=== PATIENT | male | born 1965 | race African-American/Black ===

== ENCOUNTER 2016-04-07 11:49 | Outpatient (RCR) | payer MEDICARE, MEDICAID ==
--- OUTSIDE RECORDS SUMMARY | 2016-04-01 13:02 | XMS REPORT | Continuity of Care Document ---
Author Author [facility] Organization [facility] Address Unknown Phone Unavailable Care Team Providers Care Database Operator Name Role Phone Unverified, Unverified PCP Unavailable Source Comments Some departments are not documenting in the electronic medical record. If you do not see the information that you expected, contact Release of Information in the Health Information Management department at [phone] for further assistance in locating additional records.[facility] Active Allergies and Adverse Reactions No Known Allergies Current Medications Prescription Sig. Disp. Refills Start End Date Status Date insulin aspart (NOVOLOG) Inject 8 Units into Active 100 unit/mL injection area(s) as directed three times daily with meals. pravastatin (PRAVACHOL) Take 20 mg by mouth Active 20 mg tablet daily. vitamins, multi B, C, Zn Take 1 Tab by mouth 60 Tab 3 11/18/19 Active & folate (Renal) daily. 12 (NEPHPLEX RX) 1-60-300-12.5 gi-mh-jgs-mg Tab insulin glargine (LANTUS Inject 15 Units into Active SOLOSTAR) 100 unit/mL (3 area(s) as directed at mL) injection PEN bedtime daily. carvedilol (COREG) 12.5 Take 1 Tab by mouth twice 180 Tab 2 11/30/19 Active mg tablet daily. 12 aspirin 81 mg chew tablet Take 1 Tab by mouth 90 Tab 2 11/30/19 Active daily. 12 sodium bicarbonate 650 mg Take 1 Tab by mouth three 90 Tab 3 11/30/19 Active tablet times daily with meals. 12 hydrALAzine (APRESOLINE) Take 1 Tab by mouth three 90 Tab 3 11/30/19 Active 10 mg tablet times daily. 12 sevelamer (RENAGEL) 800 Take 1 Tab by mouth three 90 Tab 2 11/30/19 Active mg tablet times daily with meals. 12 ferrous sulfate 325 mg Take 1 Tab by mouth three 90 Tab 2 11/30/19 Active (65 mg iron) tablet times daily with meals. [address] Take 1 Tab by mouth 90 Tab 2 11/30/19 Active (PROTONIX) 40 mg tablet daily. 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) 10/08/2011 Encephalopathy 10/08/2011 Cellulitis 10/08/2011 Metabolic acidosis 10/08/2011 MILENA (acute kidney injury) ([facility]) 10/08/2011 Malnutrition (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 Severe sepsis(995.92) 10/08/2011 11/30/2011 Immunizations Name Dates Previously Given Next Due Pneumococcal Vaccine 11/02/2011 (23-Jo Adult) Social History Tobacco Use Types Packs/Day Years Used Date Current Every Day Smoker Cigarettes 0.15 10 Tobacco Cessation: Ready to Quit: No Comments: Alcohol Use Drinks/Week oz/Week Comments No Last Filed Vital Signs Vital Sign Reading Time Taken Blood Pressure 102/64 06/05/2014 10:55 AM TELEGRAPH EDITOR Pulse 78 06/05/2014 10:55 AM TELEGRAPH EDITOR Temperature 35.6 C (96.1 F) 06/05/2014 10:55 AM TELEGRAPH EDITOR Respiratory Rate 14 06/05/2014 10:55 AM TELEGRAPH EDITOR Height 1.676 m (5' 6") 06/05/2014 10:55 AM TELEGRAPH EDITOR Weight 78.109 kg (172 lb 3.2 oz) 06/05/2014 10:55 AM TELEGRAPH EDITOR Body Mass Index 27.81 06/05/2014 10:55 AM TELEGRAPH EDITOR Oxygen Saturation 100% 11/30/2011 9:00 AM CDT Plan of Care Health Maintenance Due Date Last Done Comments Physical (Comprehensive) 02/20/1972 Exam Pertussis Vaccine 02/20/1976 Tetanus Vaccine 1982 Colorectal Cancer 2015 Screening Influenza Vaccine 02/07/2016 Hepatitis C Screening Completed 11/04/2011, 10/09/2011 Results from Last 3 Months Not on file
[2016-04-01 13:15] VITALS: BP 138/78
[2016-04-02] MEDS: CEFEPIME 2 GM/NS 50 ML IVPB IV SCH ×2 (13:35)
[2016-04-02] MEDS: DAPTOmycin INJECTION 400 MG in NS (IVPB) 50 ML IV SCH (14:07)
[2016-04-02 14:40] VITALS: BP 109/56
[2016-04-04] MEDS: CEFEPIME 2 GM/NS 50 ML IVPB IV SCH ×2 (13:50)
[2016-04-04] MEDS: DAPTOmycin INJECTION 400 MG in NS (IVPB) 50 ML IV SCH (14:20)
[2016-04-04 14:50] VITALS: BP 105/54
[~2016-04-07] VITALS: Ht 167.6 cm; Wt 68.0 kg
[~2016-04-07 11:49] MED LIST: AMLO10TA2 PO; ASP81CT; ASPI-983 PO; CALC667T4 PO; CALCIUM; CARV25TA PO; CEFD300C3 PO; CEFEPIME 1 GM (MAXIPIME) VIAL ONE; CEFEPIME HCL 2 GM (MAXIPIME) VIAL ONE; CEFEPIME IV ONE; CLIN300C11 PO; CLON0.2T PO; CLON1PAT15 TD; CLOP75TA28 PO; CYCL5TAB PO; DOXY100C2 PO; FRSM20T PO; HYDR-3812 PO; HYDR-3924 PO; HYDRAZALINE; HYDROCO/APAP; INSU100I14 SQ; INSU100I16 SQ; INSU100I29 SQ; INSU100V6 SQ; ISOS30TA3 PO; LANT1000 PO; LISI10TA; NF-MINO10T PO; NORMAL SALINE (BAXTER MINI) 50 ML IV ONE; NPH,100V10; NS (IVPB) 50 ML ONE; PRV20T PO; SENSIPAR; SODIUM CHLORIDE IV ONE; SULF1TAB38 PO
[2016-04-07] MEDS: CEFEPIME 2 GM/NS 50 ML IVPB IV SCH ×2 (12:10)
[2016-04-07 12:16] LABS: BASOPHILS % (AUTO) 0 % (0-10); EOSINOPHILS # (AUTO) 0.3 10^3/uL (0.0-0.3); EOSINOPHILS % (AUTO) 4 % (0-10); LYMPHOCYTES # (AUTO) 1.6 X 10^3 (1.0-4.0); LYMPHOCYTES % (AUTO) 20 % (12-44); MEAN CORPUSCULAR HEMOGLOBIN 28 PG (25-34); MEAN CORPUSCULAR HGB CONC 34 G/DL (32-36); MEAN CORPUSCULAR VOLUME 82 FL (80-99); MEAN PLATELET VOLUME 9.2 FL (7.4-10.4); MONOCYTES % (AUTO) 12 % (0-12); NEUTROPHILS # (AUTO) 5.4 X 10^3 (1.8-7.8); NEUTROPHILS % (AUTO) 65 % (42-75); PLATELET COUNT 218 10^3/uL (130-400); RED BLOOD COUNT 2.55 10^6/uL (4.35-5.85); RED CELL DISTRIBUTION WIDTH 14.8 % (10.0-14.5); WHITE BLOOD COUNT 8.3 10^3/uL (4.3-11.0)
[2016-04-07 12:35] LABS: BAND NEUTROPHILS 0 %; BASOPHILS % (MANUAL) 0 %; EOSINOPHILS % (MANUAL) 7 %; LYMPHOCYTES % (MANUAL) 16 %; NEUTROPHILS % (MANUAL) 68 %
[2016-04-07 12:39] LABS: BILIRUBIN,TOTAL 0.3 MG/DL (0.1-1.0); CALCIUM 8.5 MG/DL (8.5-10.1); CREATININE SERUM 3.03 MG/DL (0.60-1.30); POTASSIUM 3.2 MMOL/L (3.6-5.0); TOTAL PROTEIN 8.4 G/DL (6.4-8.2)
[2016-04-07 12:40] LABS: ERYTHROCYTE SEDIMENTATION RATE > 140 MM/HR (0-30)
[2016-04-07] MEDS: DAPTOmycin INJECTION 400 MG in NS (IVPB) 50 ML IV SCH (12:42)
[2016-04-07 13:20] VITALS: BP 106/54
== END 2016-06-30 | disposition home or self-care (01) ==
LOC: SDC 11:49
PROVIDERS: ATTEND Internal Medicine Infectious Disease
DX: T87.43 Infection of amputation stump, right lower extremity (principal)
CPT/HCPCS: 36415; 36592; 80053; 82550; 85007; 85027; 85652; 96365; 96367

== ENCOUNTER → 2016-08-04 | Outpatient (CLI) | payer MEDICARE, MEDICAID ==
[~2016-08-04] MED LIST changes: -CEFEPIME 1 GM (MAXIPIME) VIAL ONE; -CEFEPIME HCL 2 GM (MAXIPIME) VIAL ONE; -CEFEPIME IV ONE; -NORMAL SALINE (BAXTER MINI) 50 ML IV ONE; -NS (IVPB) 50 ML ONE; -SODIUM CHLORIDE IV ONE
--- NOTE | 2016-08-04 14:47 | Diagnostic Imaging Report ---
EXAMINATION: Three views of the left ribs. INDICATION: Fall. FINDINGS: There is no rib fracture seen. The left lung is clear. The heart is moderately enlarged. IMPRESSION: No left rib fracture is seen. Dictated by: Dictated on workstation # [id number]
== END ==
LOC: RAD 11:00
PROVIDERS: ATTEND Family Medicine
DX: R07.81 Pleurodynia (principal); W06.XXXA Fall from bed, initial encounter; Y99.8 Other external cause status
CPT/HCPCS: 71100

== ENCOUNTER 2016-08-05 04:36 | Emergency (ER) | payer MEDICARE, MEDICAID ==
[~2016-08-05] VITALS: Ht 172.7 cm; Wt 90.7 kg
[~2016-08-05 04:36] MED LIST changes: +DOPamine DRIP 250 ML IV ONE
--- OUTSIDE RECORDS SUMMARY | 2016-08-05 04:42 | XMS REPORT | Continuity of Care Document ---
Author Author [facility] Organization [facility] Address Unknown Phone Unavailable Care Team Providers Care R&D Engineer Name Role Phone Unverified, Unverified PCP Unavailable Source Comments Some departments are not documenting in the electronic medical record. If you do not see the information that you expected, contact Release of Information in the Health Information Management department at [phone] for further assistance in locating additional records.[facility] Active Allergies and Adverse Reactions No [...] folate (Renal) daily. 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[facility]) 10/12/2013 Pulmonary edema 11/26/2011 Volume overload 11/26/2011 Acute respiratory failure ([facility]) 10/08/2011 Encephalopathy 10/08/2011 Cellulitis 10/08/2011 Metabolic acidosis 10/08/2011 MILENA (acute kidney injury) ([facility]) 10/08/2011 Malnutrition ([facility]) 10/08/2011 Anemia 10/08/2011 Resolved Problems Problem Noted [...] Taken Blood Pressure 102/64 06/05/2014 10:55 AM MANAGER ATHLETICS Pulse 78 06/05/2014 10:55 AM MANAGER ATHLETICS Temperature 35.6 C (96.1 F) 06/05/2014 10:55 AM MANAGER ATHLETICS Respiratory Rate 14 06/05/2014 10:55 AM MANAGER ATHLETICS Height 1.676 m (5' 6") 06/05/2014 10:55 AM MANAGER ATHLETICS Weight 78.109 kg (172 lb 3.2 oz) 06/05/2014 10:55 AM MANAGER ATHLETICS Body Mass Index 27.81 06/05/2014 10:55 AM MANAGER ATHLETICS Oxygen Saturation 100% 11/30/2011 9:00 AM CDT Plan of Care Health Maintenance Due Date Last Done Comments Physical (Comprehensive) 02/20/1972 Exam Pertussis Vaccine 02/20/1976 Tetanus Vaccine 1982 Colorectal Cancer 2015 Screening Influenza Vaccine 02/07/2016 Hepatitis C Screening Completed 11/04/2011, 10/09/2011 Results from Last 3 Months Not on file
[2016-08-05] MEDS ORDERED: DOPamine DRIP 250 ML IV SCH (04:45)
[2016-08-05 05:02] LABS: BASOPHILS % (AUTO) 0 % (0-10); EOSINOPHILS # (AUTO) 0.4 10^3/uL (0.0-0.3); EOSINOPHILS % (AUTO) 3 % (0-10); LYMPHOCYTES # (AUTO) 4.2 X 10^3 (1.0-4.0); LYMPHOCYTES % (AUTO) 26 % (12-44); MEAN CORPUSCULAR HEMOGLOBIN 28 PG (25-34); MEAN CORPUSCULAR HGB CONC 33 G/DL (32-36); MEAN CORPUSCULAR VOLUME 85 FL (80-99); MONOCYTES % (AUTO) 6 % (0-12); NEUTROPHILS # (AUTO) 10.7 X 10^3 (1.8-7.8); NEUTROPHILS % (AUTO) 66 % (42-75); PLATELET COUNT 357 10^3/uL (130-400); RED BLOOD COUNT 4.05 10^6/uL (4.35-5.85); RED CELL DISTRIBUTION WIDTH 16.5 % (10.0-14.5); WHITE BLOOD COUNT 16.3 10^3/uL (4.3-11.0)
[2016-08-05 05:12] LABS: INR 1.2 (0.8-1.4); PROTHROMBIN TIME PATIENT 15.3 SEC (12.2-14.7)
[2016-08-05 05:21] LABS: ALANINE AMINOTRANSFERASE 27 U/L (0-55); ALBUMIN 3.5 G/DL (3.2-4.5); ANION GAP 31 MMOL/L (5-14); ASPARTATE AMINO TRANSFERASE 36 U/L (5-34); BILIRUBIN,TOTAL 0.6 MG/DL (0.1-1.0); BLOOD UREA NITROGEN 91 MG/DL (7-18); BUN/CREATININE RATIO 8; CALCIUM 8.3 MG/DL (8.5-10.1); CARBON DIOXIDE 10 MMOL/L (21-32); CHLORIDE 97 MMOL/L (98-107); CREATINE KINASE 338 U/L (30-200); CREATININE SERUM 11.55 MG/DL (0.60-1.30); GFR ESTIMATED 6; GLUCOSE 235 MG/DL (70-105); MAGNESIUM 2.8 MG/DL (1.8-2.4); SODIUM 138 MMOL/L (135-145); TOTAL PROTEIN 8.1 G/DL (6.4-8.2)
--- NOTE | 2016-08-05 05:23 | ED General ---
General Chief Complaint: Code Blue Stated Complaint: RESP DISTRESS,CODE Nursing Triage Note: Pt arrived Via EMS to ED. EMS coded pt at scene for 1 min. administered 2 mg Epi. Pt arrived with pulse in 60s and intubated. Nursing Sepsis Screen: No Definite Risk Source of Information: EMS, Family (BROTHER--WAS NOT PRESENT AT SCENE), Old Records (ALL PMH IS FROM OLD RECORDS) History of Present Illness Time Seen by Provider: 04:35 Initial Comments PT ARRIVES VIA EMS FROM HOME GIRLFRIEND REPORTEDLY CALLED EMS FOR PT HAVING SHORTNESS OF BREATH--SHE DID NOT ACCOMPANY PT TO HOSPITAL PT HAD AGONAL BREATHING WITH RESPIRATORY RATE OF 4 AT SCENE ON EMS ARRIVAL. PT DID HAVE A PULSE ON THEIR ARRIVAL. SHORTLY AFTER THEIR ARRIVAL, PT WENT INTO FULL ARREST, WITH ASYSTOLE ON MONITOR. CPR INITIATED, PT INTUBATED AND EPI X 2 WAS GIVEN WITH RETURN ON PULSE. PT HAS NOT MADE ANY RESPIRATORY EFFORT ON HIS OWN AND HAS REMAINED UNRESPONSIVE- -NO SEDATION OR PARALYTICS WERE GIVEN BY EMS PT WITH ESRD ON DIALYSIS AND MISSED AT LEAST ONE SESSION AND REPORTEDLY WAS GOING TO HAVE IT TODAY. PT IS ALSO DIABETIC AND HAS HAD RIGHT AKA BROTHER IS ONLY PERSON HERE WITH PT--HE STATES THAT HE AND PT HAD BEEN TO [facility] EAR[facility]ER AND HE DROPPED PT OFF AT HIS HOUSE AT 0200 THIS AM AND HE APPEARED FINE AT THAT TIME AND HAD APPEARED FINE ALL EVENING. PCP: DR. ANDRADE Allergies and Home Medications Allergies Coded Allergies: amoxicillin (Unverified Allergy, Mild, 12/14/15) Penicillins (Verified Adverse Reaction, Mild, 11/05/13) Home Medications Amlodipine Besylate 10 Mg Tablet 10 MG PO DAILY (Reported) Aspirin 81 Mg Tablet.dr 81 MG PO DAILY (Reported) Carvedilol 25 Mg Tablet 25 MG PO BID (Reported) Clonidine HCl 0.2 Mg Tablet 0.2 MG PO BID (Reported) Clopidogrel Bisulfate 75 Mg Tablet 75 MG PO DAILY (Reported) Cyclobenzaprine HCl 5 Mg Tablet 5 MG PO TID PRN PRN SPASMS (Reported) Hydralazine HCl 50 Mg Tablet 50 MG PO TID (Reported) Hydrocodone/Acetaminophen 1 Each Tablet 1 EACH PO Q4H PRN PRN PAIN (Reported) Insulin Aspart 300 Units/3 Ml Solution 5-7 UNITS SQ SLIDING/SCALE (Reported) 5-7 units sliding scale AC Insulin Detemir 100 Unit/1 Ml Insuln.pen 7-9 UNIT SQ HS (Reported) 7-9 units sliding scale HS > 100 Isosorbide Mononitrate 30 Mg Tab.er.24h 30 MG PO DAILY (Reported) 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 Lanthanum Carbonate 1,000 Mg Tab.chew #100 2,000 MG PO TIDWM Prescribed by: PATRICK GUALLPA on 01/10/16 1051 Lanthanum Carbonate 1,000 Mg Tab.chew #100 1,000 MG PO NEEDED PRN PRN WITH EACH SNACK Prescribed by: PATRICK GUALLPA on 01/10/16 1051 Constitutional: other (UNABLE TO OBTAIN FROM PT) Past Stmfnil-Fxpwdz-Fmvtiv Hx Patient Social History Alcohol Use: Denies Use Recreational Drug Use: Yes (MULTIPLE, INCLUDING COCAINE) Smoking Status: Current Everyday Smoker Type Used: Cigarettes Recent Foreign Travel: No Contact w/Someone Who Travel: No Recent Infectious Disease Expo: No Immunizations Up To Date Tetanus Booster (TDap): Less than 5yrs PED Vaccines UTD: Yes Date of Pneumonia Vaccine: Dec 06, 2012 Date of Influenza Vaccine: Jun 08, 2013 Seasonal Allergies Seasonal Allergies: No Surgeries HX Surgeries: Yes (RIGHT AKA WITH REVISIONS 12/2015; COLOSTOMY--REPORTEDLY FROM CHRONIC BUTTOCK WOUND; MULTIPLE DEBRIDEMENTS OF BUTTOCK WOUND) Surgeries: Abdominal, Amputation, Bowel Surgery, Orthopedic, Tonsillectomy Respiratory Hx Respiratory Disorders: Yes (O2 at HS, noncomplaint with CPAP, pulmonary HTN ; RESPIRATORY FAILURE-ON VENT IN PAST--LAST TIME 12/2015) Respiratory Disorders: Pneumonia, Sleep Apnea Cardiovascular Hx Cardiac Disorders: Yes (Severe Mitral regurgitation) Cardiac Disorders: Hypertension, Peripheral Vascular, Valvular Heart Disease Neurological Hx Neurological Disorders: No Reproductive System Hx Reproductive Disorders: No Sexually Transmitted Disease: No HIV/AIDS: No Genitourinary Hx Genitourinary Disorders: Yes (DIALYSIS THREE TIMES /WEEK since 2011) Genitourinary Disorders: Renal Failure, Dialysis Gastrointestinal Hx Gastrointestinal Disorders: Yes (colostomy related spider bite., Hep C+) Gastrointestinal Disorders: Hepatitis Musculoskeletal Hx Musculoskeletal Disorders: Yes (RIGHT AKA--CHRONIC WOUND/ OSTEOMYELITIS) Musculoskeletal Disorders: Amputee Endocrine Hx Endocrine Disorders: Yes Endocrine Disorders: Diabetes, Insulin dep HEENT HX ENT Disorders: No Cancer Hx Cancer: No Psychosocial Hx Psychiatric Problems: No Integumentary HX Skin/Integumentary Disorder: Yes (RIGHT LEG STUMP WOUND INFECTION; HX OF MULTIPLE CHRONIC WOUNDS; MRSA; ABSCESSES/CELLULITIS) Blood Transfusions Hx Blood Disorders: Yes (ANEMIA) Adverse Reaction to a Blood Tr: No Family Medical History Family Medial History: Alcoholism Cancer 19 FATHER Physical Exam Vital Signs Vital Sign - Last 12Hours 08/05/16 08/05/16 04:37 05:30 Temp 98.3 Pulse 66 Resp 16 B/P 83/54 Pulse Ox 97 O2 Delivery Ambu-Bag FiO2 100 Capillary Refill : Greater Than 3 Seconds General Appearance: Other (PT UNRESPONSIVE, INTUBATED AND BEING BAGGED ON ARRIVAL. O2 SAT 95% WITH BAGGING. PT HAS A PULSE WITH RATE IN 60'S AND BP IN 80 'S SYSTOLIC. PT HAS NO SPONTANEOUS RESPIRATORY EFFORT ) HEENT: Other (PUPILS 5MM /EQUAL AND FIXED) Respiratory: Rales (BILATERALLY/EQUAL WITH BAGGING. ) Cardiovascular: Regular Rate, Rhythm No Murmur Gastrointestinal: Soft Other (COLOSTOMY IN LLQ WITH WHAT APPEARS TO BE A PARASTOMAL HERNIA. SMALL AMOUNT OF STOOL IN COLOSTOMY BAG) Extremity: Other (RIGHT AKA. LEFT LOWER LEG WITH 1+ EDEMA; AV FISTULA IN LEFT FOREARM) Neurologic/Psychiatric: Other (UNRESPONSIVE) Skin: Normal Color (BLACK) Warm/Dry Date of ETT Placement: Aug 05, 2016 Time of ETT Placement: 0415 Tube Size: 8 Progress/Results/Core Measures Results/Orders Lab Results Laboratory Tests Test 08/05/16 04:55 Range/Units Activated Partial Thromboplast Time 38 H 24-35 SEC Alanine Aminotransferase (ALT/SGPT) 27 0-55 U/L Albumin 3.5 3.2-4.5 G/DL Alkaline Phosphatase 106 40-136 U/L Anion Gap 31 H 5-14 MMOL/L Aspartate Amino Transf (AST/SGOT) 36 H 5-34 U/L BUN/Creatinine Ratio 8 Band Neutrophils 2 % Basophils # (Auto) 0.0 0.0-0.1 10^3/uL Basophils (%) (Auto) 0 0-10 % Blood Morphology Comment NORMAL Blood Urea Nitrogen 91 H 7-18 MG/DL Calcium Level 8.3 L 8.5-10.1 MG/DL Carbon Dioxide Level 10 L 21-32 MMOL/L Chloride Level 97 L 98-107 MMOL/L Creatine Kinase MB 14.4 *H <6.6 NG/ML Creatinine 11.55 H 0.60-1.30 MG/DL Eosinophils # (Auto) 0.4 H 0.0-0.3 10^3/uL Eosinophils % (Manual) 2 % Eosinophils (%) (Auto) 3 0-10 % Estimat Glomerular Filtration Rate 6 Glucose Level 235 H 70-105 MG/DL Hematocrit 35 L 40-54 % Hemoglobin 11.2 L 13.3-17.7 G/DL INR Comment 1.2 0.8-1.4 Lymphocytes # (Auto) 4.2 H 1.0-4.0 X 10^3 Lymphocytes % (Manual) 18 % Lymphocytes (%) (Auto) 26 12-44 % Magnesium Level 2.8 H 1.8-2.4 MG/DL Mean Corpuscular Hemoglobin 28 25-34 PG Mean Corpuscular Hemoglobin Concent 33 32-36 G/DL Mean Corpuscular Volume 85 80-99 FL Mean Platelet Volume 8.0 7.4-10.4 FL Monocytes # (Auto) 1.0 0.0-1.0 X 10^3 Monocytes % (Manual) 6 % Monocytes (%) (Auto) 6 0-12 % Neutrophils # (Auto) 10.7 H 1.8-7.8 X 10^3 Neutrophils % (Manual) 72 % Neutrophils (%) (Auto) 66 42-75 % Platelet Count 357 130-400 10^3/uL Potassium Level 7.0 *H 3.6-5.0 MMOL/L Prothrombin Time 15.3 H 12.2-14.7 SEC Red Blood Count 4.05 L 4.35-5.85 10^6/uL Red Cell Distribution Width 16.5 H 10.0-14.5 % Sodium Level 138 135-145 MMOL/L Total Bilirubin 0.6 0.1-1.0 MG/DL Total Creatine Kinase 338 H 30-200 U/L Total Protein 8.1 6.4-8.2 G/DL Troponin I < 0.30 <0.30 NG/ML White Blood Count 16.3 H 4.3-11.0 10^3/uL My Orders Orders-ED PEREIRA DO Saline Lock/Iv-Start (08/05/16 04:43) Ekg Tracing (08/05/16 04:43) Monitor-Rhythm Ecg Trace Only (08/05/16 04:43) Cbc With Automated Diff (08/05/16 04:43) Comprehensive Metabolic Panel (08/05/16 04:43) Creatine Kinase (08/05/16 04:43) Creatine Kinase Mb (08/05/16 04:43) Magnesium (08/05/16 04:43) Protime With Inr (08/05/16 04:43) Partial Thromboplastin Time (08/05/16 04:43) Troponin I (08/05/16 04:43) Chest 1 View, Ap/Pa Only (08/05/16 04:43) Rt Request For Service (08/05/16 04:43) Dopamine Drip (Dopamine Drip) (08/05/16 04:45) Ct Head Wo (08/05/16 04:58) Manual Differential (08/05/16 04:55) Catheter(Urinary) Insert & Ass 03,15 (08/05/16 05:27) Ng Tube Insert & Assessment (08/05/16 05:27) Arterial Blood Gas (08/05/16 05:33) Albuterol Pre-Mix Nebs (Rt) (Proventil P (08/05/16 05:33) Svn Sm Volume Nebulizer Rt-Rfs (08/05/16 05:33) Sodium Polystyrene (Bulk Btl) (Kayexalat (08/05/16 05:45) Calcium Chloride 10% Injection (Calcium (08/05/16 05:45) D50w (Emergency) Syringe (Dextrose 50% 5 (08/05/16 05:45) Insulin (Regular) Human (Humulin R (Per (08/05/16 05:45) Calcium Gluconate 10% Inj (Calcium Gluco (08/05/16 05:39) Sodium Polystyrene Sulfonate (Kayexalate (08/05/16 05:39) Medications Given in ED Current Medications Medications Dose Ordered Sig/Sandip Route Start Time Stop Time Status Last Admin Dose Admin Calcium Gluconate 4.65 meq STK-MED ONCE .ROUTE 08/05/16 05:39 08/05/16 05:42 DC 08/05/16 05:50 4.65 MEQ Dextrose 50 ml ONCE ONCE IV 08/05/16 05:45 08/05/16 05:46 DC 08/05/16 05:50 50 ML Insulin Human Regular 10 unit ONCE ONCE IV 08/05/16 05:45 08/05/16 05:46 DC 08/05/16 05:50 10 UNIT Sodium Polystyrene Sulfonate 15 gm STK-MED ONCE .ROUTE 08/05/16 05:39 08/05/16 05:42 DC 08/05/16 05:50 30 GM Vital Signs/I&O Vital Sign - Last 12Hours 08/05/16 08/05/16 08/05/16 08/05/16 04:37 05:30 05:32 06:07 Temp 98.3 98.1 Pulse 66 77 100 101 Resp 16 26 05 17 B/P 83/54 125/70 Pulse Ox 97 100 100 100 O2 Delivery Ambu-Bag Mechanical Ventilator FiO2 100 Blood Pressure Mean: 64 Progress Note : Progress Note O2 SATS UP TO 100% AFTER PT PLACED ON VENT HEART RATE REMAINED STABLE BP UP TO 120'S SYSTOLIC WITH DOPAMINE DRIP NO DETERIORATION IN PT'S CONDITION DURING ER STAY ECG Initial ECG Impression Time: 04:44 Initial ECG Rate: 61 Initial ECG Rhythm: Normal Sinus Initial ECG Comparisson: No Previous ECG Available Diagnostic Imaging Comments CXR--RIGHT LUNG WITH DIFFUSE INFILTRATES/EFFUSION, ET TUBE IN PLACE ABOVE ZEFERINO --PENDING RADIOLOGIST REVIEW CT HEAD--NO ACUTE PROCESS, PER STAT RAD VIA FAX @ [phone] Reviewed: Reviewed by Ut Critical Care Note Critical Care Total Time (minutes) 30 MINUTES Departure Communication Progress Notes 0446--CONTACTED [facility] ( [facility]) --ON CRITICAL CARE DIVERSION 0448--CALLED [facility] DIRECT CALL--HAVE BEDS. PAGING ECHO TECH 0452--SPOKE WITH DR. KUMRA. WANTS CT OF HEAD DONE HERE PRIOR TO TRANSFER. NO ADDITIONAL RECOMMENDATIONS AT THIS TIME. 0500--NO HELICOPTER TRANSPORT DUE TO LOW CEILING. [facility] CONTACTED FOR TRANSPORT. Impression Impression: Primary Impression: S/P CODE BLUE Additional Impressions: RIGHT LUNG INFILTRATES Fluid overload ESRD on dialysis Hyperkalemia Acute respiratory failure Diabetes mellitus Disposition: 02 XFER SHT-TRM HOSP Condition: Critical Departure-Patient Inst. Referrals: DOMINGUEZ ANDRADE DO (PCP/Family) Primary Care Physician ED PEREIRA DO Aug 05, 2016 05:23
[2016-08-05 05:27] LABS: TROPONIN I < 0.30 NG/ML (<0.30)
[2016-08-05 05:29] LABS: BAND NEUTROPHILS 2 %; EOSINOPHILS % (MANUAL) 2 %; LYMPHOCYTES % (MANUAL) 18 %; NEUTROPHILS % (MANUAL) 72 %
[2016-08-05 05:30] VITALS: BP 128/77
[2016-08-05 05:32] VITALS: BP 125/70
[2016-08-05] MEDS ORDERED: RT-ALBUTEROL SULF 2.5 MG/3 ML PRE-MIX VIAL INH STA (05:33)
[2016-08-05] MEDS ORDERED: SOD POLYSTERENE 15 GM/60 ML (KAYEXALATE) UNIT DOSE ONE (05:39)
[2016-08-05] MEDS ORDERED: CALCIUM GLUC. 10% 4.65 MEQ/10 ML VIAL ONE (05:39)
[2016-08-05] MEDS ORDERED: SOD POLYSTYRENE 30 GM/120 ML (KAYEXALATE) BULK BOTTLE PO ONE (05:45)
[2016-08-05] MEDS ORDERED: inSUlin (REGULAR) HUMAN 1 UNIT/0.01 ML (CHARGE PER UNIT) IV ONE (05:45)
[2016-08-05] MEDS ORDERED: CALCIUM CHLORIDE 1 GM/10 ML (IMS) SYR INJ ONE (05:45)
[2016-08-05] MEDS ORDERED: DEXTROSE 50% 50 ML (IMS) SYR IV ONE (05:45)
[2016-08-05 06:07] VITALS: BP 135/75
--- NOTE | 2016-08-05 06:18 | Diagnostic Imaging Report ---
PROCEDURE: CT head without contrast. TECHNIQUE: Multiple contiguous axial images were obtained through the brain without the use of intravenous contrast. INDICATION: CODE BLUE, unresponsive, ventilator support. FINDINGS: Noncontrast CT scan of the head is compared to a previous study from 11-05-13. There is no mass effect, midline shift, hemorrhage, or extra-axial fluid collections. Some motion artifact is present. There is a questionable acute infarct in the left frontal lobe seen on image #19. This could be artifact. Motion is present on the slice. Ventricles and cortical sulci appear normal. Bone windows demonstrate small air-fluid level in the sphenoid and maxillary sinuses. IMPRESSION: 1. There is questionable small infarct in the left frontal lobe. This is most likely motion artifact as motion is seen on the slice. 2. Sinusitis. Dictated by: Dictated on workstation # [id number]
--- NOTE | 2016-08-05 06:19 | Diagnostic Imaging Report ---
INDICATION: CODE BLUE, unresponsive ventilator support. FINDINGS: Portable supine view of the chest demonstrates interval placement of an endotracheal tube. This is in good position. Mild cardiomegaly is again identified. There are infiltrates throughout the right lung. Mild infiltrates are present in the left perihilar region. IMPRESSION: 1. Endotracheal tube is in good position. 2. Infiltrates are seen throughout the right lung and in the left perihilar region with stable cardiomegaly. Dictated by: Dictated on workstation # [id number]
== END 2016-08-05 06:17 | disposition short-term general hospital (02) ==
LOC: EDUNIT# 04:36 → ER 04:38
DX: J96.00 Acute respiratory failure, unspecified whether with hypoxia or hypercapnia (principal); E87.70 Fluid overload, unspecified; E87.5 Hyperkalemia; I12.0 Hypertensive chronic kidney disease with stage 5 chronic kidney disease or end stage renal disease; N18.6 End stage renal disease; Z99.2 Dependence on renal dialysis; E11.9 Type 2 diabetes mellitus without complications; B19.20 Unspecified viral hepatitis C without hepatic coma; F17.210 Nicotine dependence, cigarettes, uncomplicated; Z79.02 Long term (current) use of antithrombotics/antiplatelets; Z79.82 Long term (current) use of aspirin; Z79.899 Other long term (current) drug therapy; Z93.3 Colostomy status; Z89.611 Acquired absence of right leg above knee
CPT/HCPCS: 36415; 51702; 70450; 71010; 80053; 82550; 82553; 83735; 84484; 85007; 85027; 85610; 85730; 93005; 93041; 94640; 96374; 96375; 99291; 99292